=== PATIENT | female | born 1995 | race Caucasian/White ===

== ENCOUNTER 2016-08-29 23:08 | Emergency (ER) | payer BC ==
[~2016-08-29] VITALS: Ht 157.5 cm; Wt 118.0 kg
[2016-08-29 23:16] VITALS: Ht 157.5 cm; Wt 118.0 kg
--- NOTE | 2016-08-30 01:47 | ERD ---
ER Documentation Chief Complaint Date/Time DATE: 08/30/16 TIME: 01:44 Chief Complaint numbness right side of face/right eye redness with discharge since 8 pm HPI 20-year-old female who presents emergency department for bilateral eye redness with greenish/yellowish discharge the inner canthus when she woke up at around 8 PM denies eye trauma. Denies numbness or tingling sensation during history taking. Denies headache, dizziness, blurry vision, eye trauma, foreign body sensation to eye, ear pain, pain on eye movement, cough, difficulty of breathing, nausea, vomiting, neck pain, neck stiffness, shoulder pain, chest pain, back pain, abdominal pain, recent travel, recent exposure to illness, recent antibiotic use in the last 3 months, numbness or tingling sensation. LMP: 3 months ago. A0 No known drug allergies. No past medical history. No surgical history. Not taking any medications at home. Social history: Works as a retail. Occasional drinks alcoholic beverages. Denies smoking/use of illegal drugs. ROS All systems reviewed and are negative except as per history of present illness. Medications Home Meds Active Scripts Amoxicillin* (Amoxicillin*) 500 Mg Cap, 500 MG PO BID for 5 Days, CAP Prov:PASILABAN,KLAR F 08/30/16 Erythromycin* (Erythromycin* Ophthalmic) 1 Applic Oint, 1 APPLIC BOTH EYES QID for 7 Days, EA Prov:PASILABAN,KLAR F 08/30/16 Allergies Allergies: Coded Allergies: No Known Drug Allergies (Verified Allergy, Unknown, 08/29/16) Physical Exam Vitals Vital Signs Date Time Temp Pulse Resp B/P Pulse Ox O2 Delivery O2 Flow Rate FiO2 08/29/16 23:16 99.3 135 20 127/76 100 Physical Exam CONSTITUTIONAL: Well-appearing; well-nourished; in no apparent distress. HEAD: Normocephalic; atraumatic. EYES: Conjunctiva erythema with crusty yellowish to greenish crust ti inner canthus of bilateral eyes, sclera non-icteric, EOM intact. PERRLA. No pain on eye movement. No signs of globe rupture. Ears: Hearing intact. EACs clear, TMs non-bulging, non-inflamed, translucent & mobile, ossicles normal appearance, No obstructions, no erythema, no discharges Nose: No obstructions. No polyps. No external lesions. Mucosa non-inflamed. No external lesions, septum and turbinates normal. No rhinorrhea. No discharges. Frontal sinus is non-tender to palpation. Maxillary sinus is non-tender to palpation. MOUTH: Moist mucous membranes, no lesion, no obstructions, no vesicles, no thrush, patent airway Throat: Uvula in midline. Right tonsil is +1 with no erythema, no exudate. Left tonsil is +1 with no erythema, no exudate. Tolerating secretions well. Good gag reflex. Patent airway. Neck: Supple, without lesions, bruits, or adenopathy. No mass. Thyroid non- enlarged and non-tender to palpation. CHEST: Symmetrical chest. Respirations even and not labored. No retractions noted. CARDIOVASCULAR: Normal S1, S2. RRR. No murmurs, gallops. RESPIRATORY: Normal chest excursion with respiration; breath sounds clear and equal bilaterally; no wheezes, rhonchi, or rales. Breathing even and unlabored. Speaking in clear, full, and complete sentences w/ ease. ABDOMEN: Normal bowel sounds normal. Soft, round, non-distended, non-guarding, no tenderness, no rebound, no organomegaly, no masses, no pulsating abdominal mass. No hernia. No peritoneal signs. : No CVA tenderness. BACK: Symmetrical shoulder. Spine is midline without deformity, tenderness. No evidence of trauma or deformity. PELVIS: Stable pelvis. No evidence of trauma or deformity. MUSCULOSKELETAL: Normal gait and station. No misalignment, asymmetry, crepitation, defects, tenderness, masses, effusions, decreased range of motion, instability, atrophy or abnormal strength or tone in the head, neck, spine, ribs , pelvis or extremities. No calf tenderness. NEUROVASCULAR: Distal pulses are present. Pedal pulse are present, equal, and normal. Capillary refills are < 2 seconds. NEUROLOGIC: Alert and oriented x4. Speaks full and clear sentences. Cranial Nerves II-XII normal. Sensation to pain, touch, and proprioception normal. Grossly unremarkable. No neurologic deficits. Romberg test is negative. PSYCHOLOGICAL: The patients mood and manner are appropriate. No hallucinations , delusions. Not SI. Not HI. Has the capacity to decide for self SKIN: Normal for age and ethnicity; warm; dry; good turgor; no apparent lesions or exudates. No rashes, hives, discoloration. Intact. Procedures/MDM Examination: Please see physical examination. Disease process, medical treatment was explained to the patient and family member. They verbalized understanding and agreed with the diagnostic tests, medical treatment, and follow-up care. Treatment: Visual Acuity. Re-evaluation: No pain on eye movement. No neck pain/stiffness. Good and full range of motion of neck and spine. Cranial nerves II-XII are intact. Romberg test is negative. Consultation: None. Differential diagnosis: Viral conjunctivitis versus bacterial conjunctivitis Medical decision makin-year-old female who presents emergency department for bilateral eye redness with greenish/yellowish discharge the inner canthus when she woke up at around 8 PM denies eye trauma. Denies numbness or tingling sensation during history taking. Patient's complaint, my physical examination, me re-evaluation are consistent with my final diagnosis of bacterial conjunctivitis. Medications prescribed are the following: Erythromycin. Amoxicillin. Patient and family member are made aware of the side effects and adverse reactions of the medications prescribed. Instructed on when to seek emergent and medical attention in case allergic/anaphylactic reactions or severe side effects and or adverse reactions to medications. Patient and family member verbalized understanding. Patient instructed Instructed to follow-up with his PCP in 24-48 hours. PCP to refer patient to [facility] if her symptoms get worse in the next 24-48 hours. Instructed to Call 911 for chest pain, shortness of breath. Advised to come back here in ED as soon as possible for severity of symptoms which includes but not limited to: any new symptoms; shortness of breath/difficulty of breathing; cardiovascular changes; severe gastrointestinal symptoms; signs and symptoms of bleeding and or infection; signs of compartment syndrome/neurovascular changes; neurological changes/deficits. Patient and family member verbalized understanding. Upon discharge, patient is alert and oriented x 4, speaks full and clear sentences, denies pain, has no neurological deficits, has no neurovascular deficits, difficulty of breathing. Breathing even and unlabored. Lung sounds are clear to auscultation. Not in distress. Appears comfortable. Ambulatory with steady gait. Appears satisfied with care provided here in ED. Departure Diagnosis: Primary Impression: Conjunctivitis Additional Instructions: Follow-up with primary care physician the next 24-48 hours. Come back to emergency department for any new symptoms or any worsening of symptoms. Hemodynamically stable on discharge. LARS WAKEFIELD August 30, 2016 01:47
[2016-08-30] MEDS ORDERED: ERYTOPOI BOTH EYES (01:48)
[2016-08-30] MEDS ORDERED: AMO500 PO (01:49)
== END 2016-08-30 02:03 | disposition home or self-care (01) ==
LOC: FTE 23:08
DX: H10.9 Unspecified conjunctivitis (principal)
CPT/HCPCS: 99284